=== PATIENT | female | born 1960 | race Two or more races ===

== ENCOUNTER 2021-11-22 14:09 | Emergency (ER) | payer OTHER ==
[~2021-11-22] VITALS: Ht 162.6 cm; Wt 77.1 kg
[2021-11-22] MEDS ORDERED: LOSARTAN-HCTZ1 EAC2 PO (14:20)
[2021-11-22] MEDS ORDERED: TOPROL XL100 M1 PO (14:21)
[2021-11-22] MEDS ORDERED: NORVASC5 MG PO (14:22)
== END 2021-11-22 16:58 | disposition home or self-care (01) ==
LOC: ER 14:09
DX: M12.572 Traumatic arthropathy, left ankle and foot (principal); T14.90XS Injury, unspecified, sequela; X58.XXXS Exposure to other specified factors, sequela